=== PATIENT | female | born 1985 | race Caucasian/White ===

== ENCOUNTER → 2018-08-31 11:00 | Outpatient (CLI) | payer SELFPAY | PROVIDERS: Family Provider Family Medicine; PCP Family Medicine | DX: Z23 Encounter for immunization (principal) | CPT/HCPCS: 90471; 90686 ==

== ENCOUNTER → 2019-05-28 17:48 | Outpatient (CLI) | payer SELFPAY ==
[2019-05-28 17:58] LABS: Bacteria Urine None Seen
[2019-05-28 18:04] LABS: Appearance Urine UA CLEAR; Bilirubin Urine UA NEGATIVE (NEGATIVE); Color Urine UA YELLOW; Glucose Urine UA NEGATIVE (Negative); Ketones Urine UA NEGATIVE (NEGATIVE); Leukocyte Esterase Urine UA TRACE (NEGATIVE); Nitrite Urine UA NEGATIVE (Negative); Occult Blood Urine UA TRACE-LYSED (Negative); Protein Urine UA NEGATIVE (Negative); Specific Gravity Urine UA 1.025 (1.000-1.035); Urobilinogen Urine UA 0.2 E.U./dL (0.2)
[2019-05-28 18:51] LABS: Culture Indicated Urine Specimen Cultured; RBC Urine 0-1/HPF (0-5/HPF); Squamous Epithelial Cell Urine 1-5 /HPF (0-5/HPF); WBC Urine 1-5/HPF (0-5/HPF)
== END ==
PROVIDERS: Family Provider Family Medicine; PCP Family Medicine; Visit Provider Family Medicine
DX: R30.0 Dysuria (principal)
CPT/HCPCS: 81001; 87086

== ENCOUNTER → 2019-06-18 17:16 | Outpatient (CLI) | payer SELFPAY | PROVIDERS: Family Provider Family Medicine; PCP Family Medicine; Visit Provider Physician Assistant | DX: N89.8 Other specified noninflammatory disorders of vagina (principal) | CPT/HCPCS: 87210 ==

== ENCOUNTER 2020-12-16 20:44 | Emergency (ER) | payer SELFPAY ==
[2020-12-16] VITALS (14 sets, daily range): BP systolic 122–140; BP diastolic 71–92; PULSE 61–76; RESP 16–18; TEMP 36.8; O2SAT 96–99; BMI 33.5
[2020-12-16 21:19] LABS: Bacteria Urine None Seen
[2020-12-16 21:27] LABS: Add Manual Diff / Slide Review NO; Basophils Absolute Auto 0 /uL (0-100); Basophils Percent Auto 0.7 % (0-2); Eosinophils Absolute Auto 100 /uL (0-450); Eosinophils Percent Auto 2.1 % (2-4); Hematocrit 36.6 % (36-46); Hemoglobin 11.7 g/dL (12.0-16.0); Lymphocytes Absolute Auto 2000 /uL (1100-4500); Lymphocytes Percent Auto 28.9 % (25-40); Mean Corpuscular Hemoglobin 28.5 PG (26-34); Mean Corpuscular Volume 88.8 fL (80-100); Monocytes Absolute Auto 600 /uL (0-900); Monocytes Percent Auto 8.7 % (3-14); Neutrophils Absolute Auto 4200 /uL (1500-7000); Neutrophils Percent Auto 59.6 % (50-75); Platelet Count 304 X10^3/uL (150-400); Red Blood Cell Count 4.12 X10^6/uL (4.0-5.2); Red Cell Distribution Width 13.7 % (11.6-14.8)
[2020-12-16 21:28] LABS: Amorphous Sediment Urine 1+; RBC Urine 30-100/HPF (0-5/HPF); Squamous Epithelial Cell Urine 0-1 /HPF (0-5/HPF); WBC Urine 0-1/HPF (0-5/HPF)
[2020-12-16 21:30] LABS: Culture Indicated Urine Cult Not Indicated
[2020-12-16 21:44] LABS: Alanine Aminotransferase 31 IU/L (<35); Albumin 3.6 g/dL (3.5-5.0); Albumin Globulin Ratio 1.2 (1.0-2.8); Alkaline Phosphatase 138 U/L (38-126); Aspartate Aminotransferase 33 IU/L (14-36); BUN Creatinine Ratio 17.6 (6-22); Bilirubin Total 0.2 mg/dL (0.2-1.3); Blood Urea Nitrogen 12 mg/dL (7-17); Calcium 10.2 mg/dL (8.4-10.2); Carbon Dioxide 26 mmol/L (22-32); Chloride 108 mmol/L (98-107); Estimated Glomerular Filt Rate > 60.0 mL/min (>60); Glucose 94 mg/dL (70-100); HEMOLYSIS 17 (0-50); Sodium 135 mmol/L (137-145); Total Protein 6.6 g/dL (6.3-8.2)
--- NOTE | 2020-12-17 00:06 | ED.GENADULT ---
HPI - General Adult General Chief complaint: Hypertension Stated complaint: hypertension Time Seen by Provider: 12/16/20 20:58 Source: patient Mode of arrival: Ambulatory History of Present Illness HPI narrative: 34-year-old now 6 days without difficulty had a home with her staff nurse midwife and in follow-up was noted to have blood pressure still slightly elevated in the 140/80 range. She is not having any significant headache, swelling or increased edema. She did have similar problems with her 1st 2 pregnancies however after delivery blood pressures came down fairly quickly without any additional medical intervention. She was sent in by her staff nurse midwife for further evaluation today. She is doing well without fevers, breast-feeding is going well, lochia is slowly nicely, perineal pain is resolving. She describes no cough, chest pain, palpitations. Related Data Previous Rx's Medication Instructions Recorded labetalol 100 mg PO BID #60 tab 12/17/20 Allergies Allergy/AdvReac Type Severity Reaction Status Date / Time No Known Drug Allergies Allergy Verified 06/18/19 16:42 Review of Systems Review of Systems ROS Unobtainable: All systems reviewed & are unremarkable except as noted in HPI and below Patient History Medical History (Updated 12/17/20 @ 00:11 by Liv Kwok MD) Hypertension in , condition Family History Brother Age: 38 Chronic heartburn Drug addiction in remission Father Age: 63 History of degenerative disc disease Other chronic pain Depression Mental health problem High cholesterol Grandmother Smoker Alcoholic Cerebrovascular accident (CVA), unspecified mechanism Mother Age: 62 Rheumatoid arthritis, involving unspecified site, unspecified rheumatoid factor presence Fibromyalgia Insomnia, unspecified type Depression Social anxiety disorder Recovering alcoholic in remission Drug addiction in remission Grandfather Smoker Alcoholic Grandmother Age: 87 Type 2 diabetes mellitus Memory loss Sister Age: 36 Rheumatoid arthritis, involving unspecified site, unspecified rheumatoid factor presence Anxiety Mental health problem Social History Smoking Status: Never smoker Smoking Status: Never smoker Substance Use Type: does not use Exam Narrative Exam Narrative: General: Healthy appearing, in no acute distress. Able to give a complete and coherent history. Well-nourished well-developed HEENT: Moist mucous membranes, normal sclera with reactive pupils, Respiratory: Lungs are clear to auscultation, no wheezing no rales no rhonchi. Full and symmetrical air movement Chest: Breasts are full, no evidence of mastitis Cardiac: Regular rate and rhythm no murmurs no bruits Abdomen: Soft, nontender, fundus is approximately 4 cm below the umbilicus good bowel tones, no flank pain Skin: Warm and dry, no rashes Neurologic: Grossly neurologically intact with no obvious asymmetries or abnormalities, no hyper-reflexia Extremities: No trauma, well perfused Psych: Cooperative, appropriate insight and affect Initial Vital Signs Initial Vital Signs: Vital Signs Temperature 98.3 F 12/16/20 20:55 Pulse Rate 76 12/16/20 20:55 Respiratory Rate 16 12/16/20 20:55 Blood Pressure 140/82 12/16/20 20:55 Pulse Oximetry 99 12/16/20 20:55 Course Orders Ordered: ED Orders 12/16/20 21:02 Urine Microscopic Stat 12/16/20 21:20 Complete Blood Count AUTO DIFF Stat Comprehensive Metabolic Panel Stat Vital Signs Vital signs: Vital Signs - 8 hr 12/16/20 20:55 12/16/20 21:00 12/16/20 21:23 Temperature 98.3 F Pulse Rate 76 73 69 Respiratory Rate 16 18 Blood Pressure 140/82 132/71 Pulse Oximetry 99 98 97 12/16/20 21:30 12/16/20 21:45 12/16/20 22:00 Temperature Pulse Rate 68 69 69 Respiratory Rate 17 Blood Pressure 131/79 123/79 128/86 Pulse Oximetry 98 98 98 12/16/20 22:15 12/16/20 22:30 12/16/20 22:45 Temperature Pulse Rate 70 64 65 Respiratory Rate Blood Pressure 129/85 129/85 124/82 Pulse Oximetry 97 97 97 12/16/20 23:00 12/16/20 23:15 12/16/20 23:30 Temperature Pulse Rate 64 64 61 Respiratory Rate Blood Pressure 122/83 138/81 Pulse Oximetry 96 96 97 12/16/20 23:31 12/16/20 23:45 Temperature Pulse Rate 61 75 Respiratory Rate Blood Pressure 128/82 135/92 H Pulse Oximetry 97 97 Medical Decision Making Medical Records Medical records reviewed: Yes I reviewed the patient's medical records. Lab Data Lab results reviewed: Yes I reviewed the patient's lab results. Result diagrams: 12/16/20 21:20 12/16/20 21:20 Labs: Lab Results 12/16/20 12/16/20 12/16/20 Range/Units 21:02 21:20 21:20 WBC 7.0 (4.5-11.0) X10^3/uL RBC 4.12 (4.0-5.2) X10^6/uL Hgb 11.7 L (12.0-16.0) g/dL Hct 36.6 (36-46) % MCV 88.8 (80-100) fL MCH 28.5 (26-34) PG MCHC 32.0 (30-36) % RDW 13.7 (11.6-14.8) % Plt Count 304 (150-400) X10^3/uL Neut % (Auto) 59.6 (50-75) % Lymph % (Auto) 28.9 (25-40) % Bea[place]gard % (Auto) 8.7 (3-14) % Eos % (Auto) 2.1 (2-4) % Baso % (Auto) 0.7 (0-2) % Neut # (Auto) 4200 (0945-4424) /uL Lymph # (Auto) 2000 (5383-9236) /uL Bea[place]gard # (Auto) 600 (0-900) /uL Eos # (Auto) 100 (0-450) /uL Baso # (Auto) 0 (0-100) /uL Sodium 135 L (137-145) mmol/L Potassium 4.0 (3.4-5.1) mmol/L Chloride 108 H (98-107) mmol/L Carbon Dioxide 26 (22-32) mmol/L BUN 12 (7-17) mg/dL Creatinine 0.68 (0.52-1.04) mg/dL Estimated GFR > 60.0 (>60) mL/min BUN/Creatinine Ratio 17.6 (6-22) Glucose 94 (70-100) mg/dL Calcium 10.2 (8.4-10.2) mg/dL Total Bilirubin 0.2 (0.2-1.3) mg/dL AST 33 (14-36) IU/L ALT 31 (<35) IU/L Alkaline Phosphatase 138 H (38-126) U/L Total Protein 6.6 (6.3-8.2) g/dL Albumin 3.6 (3.5-5.0) g/dL Globulin 3.0 (1.7-4.1) g/dL Albumin/Globulin Ratio 1.2 (1.0-2.8) Urine RBC 30-100/hpf H (0-5/HPF) Urine WBC 0-1/hpf (0-5/HPF) Ur Squamous Epith Cells 0-1 /hpf (0-5/HPF) Amorphous Sediment 1+ Urine Bacteria None seen (None) Ur Culture Indicated? Cult not indicated Urine Dip Bedside Urine Glucose Negative Bedside Urine Bilirubin - Negative Bedside Urine Ketone - Negative Urine Specific [place] 1.020 Bedside Urine Occult Blood +++ Bedside Urine pH 6.5 Bedside Urine Protein - Negative Bedside Urine Urobilinogen - Negative Bedside Urine Nitrite - Negative Bedside Urine Leukocytes - Negative Esterase Point of care testing: Urine Dip Bedside Urine Glucose Negative Bedside Urine Bilirubin - Negative Bedside Urine Ketone - Negative Urine Specific [place] 1.020 Bedside Urine Occult Blood +++ Bedside Urine pH 6.5 Bedside Urine Protein - Negative Bedside Urine Urobilinogen - Negative Bedside Urine Nitrite - Negative Bedside Urine Leukocytes - Negative Esterase MDM Narrative Medical decision making narrative: 34-year-old woman for 6 days with continued slightly elevated blood pressures. No evidence of preeclampsia or HELLP syndrome. Discussed starting labetalol 100 mg b.i.d. as needed if blood pressures are over 140/80. This is reviewed with her staff nurse midwife who referred her to emergency department. Will ask her to follow-up with her primary care physician regarding need for continuing blood pressure medication management. She is safe for home discharge Discharge Plan Departure Patient Disposition: Home Clinical Impression: Hypertension in , condition Instructions: DI for High Blood Pressure Activity Restrictions/Additional Instructions: Thank you for coming in today Your blood pressures are trending a little bit high but the clearly come down to normal ranges as well. With a blood work done in the emergency room today there is no evidence of preeclampsia. I am going to suggest that we begin labetalol 100 mg twice a day. This medication is safe with breast-feeding. Prescription was electronically transmitted to [facility] in [place] for you today. In the morning please check your blood pressure and if it is above 140/80 take the labetalol. Repeat this in the evening. If your blood pressure is not over 140/80 you do not need to take the medication. Please follow-up with Dr. Gregory for the blood pressure questions. I did review my recommendations with your staff nurse midwife however they do not typically prescribed blood pressure medications Prescriptions: New labetalol 100 mg tablet 100 mg PO BID Qty: 60 RF: 0 Referrals: Rosey Gregory DO [Primary Care Provider] -
[2020-12-17 00:30] VITALS: BP 129/88; PULSE 73; RESP 18; O2SAT 97
== END 2020-12-17 00:31 | disposition home or self-care (01) ==
PROVIDERS: Emergency Provider Emergency Medicine; Family Provider Family Medicine; PCP Family Medicine
DX: O16.5 Unspecified maternal hypertension, complicating the puerperium (principal)
CPT/HCPCS: 36415; 80053; 81003; 81015; 85025; 99281; 99283

== ENCOUNTER → 2021-02-26 11:14 | Outpatient (CLI) | payer OTHER, SELFPAY ==
[2021-02-26] MEDS: COVID-19 VACC #1, MRNA(MOD) 100 MCG/0.5 ML VIAL IM (11:22)
== END ==
PROVIDERS: Family Provider Family Medicine; PCP Family Medicine; Visit Provider Internal Medicine
DX: Z23 Encounter for immunization (principal)
CPT/HCPCS: 0011A; 91301

== ENCOUNTER → 2021-04-01 11:08 | Outpatient (CLI) | payer OTHER, SELFPAY ==
[2021-04-01] MEDS: COVID-19 VACC #2, MRNA(MOD) 100 MCG/0.5 ML VIAL IM (11:15)
== END ==
PROVIDERS: Family Provider Family Medicine; PCP Family Medicine; Visit Provider Internal Medicine
DX: Z23 Encounter for immunization (principal)
CPT/HCPCS: 0012A; 91301

== ENCOUNTER → 2022-01-01 10:57 | Outpatient (CLI) | payer SELFPAY ==
--- NOTE | 2022-01-01 10:59 | DI.RAD.S_ITS ---
PROCEDURE: FL BARIUM SWALLOW INDICATIONS: dysphagia COMPARISON: None. FINDINGS: Function: There is normal esophageal peristalsis. No elicited gastroesophageal reflux. There is normal transit of a calibrated barium tablet through the esophagus into the stomach. Morphology: Air-contrast images demonstrate normal mucosal morphology. Single contrast views show no esophageal strictures, extrinsic mass effects, or diverticula. Limited images of the stomach demonstrate normal appearance. IMPRESSION: Normal esophagram. Dictated by: Steffanie Gonzalez M.D. on 01/01/2022 at 12:18 Approved by: Steffanie Gonzalez M.D. on 01/01/2022 at 12:18
== END ==
PROVIDERS: Family Provider Family Medicine; PCP Family Medicine; Referring Provider Family Medicine; Visit Provider Family Medicine
DX: R13.10 Dysphagia, unspecified (principal)
CPT/HCPCS: 74220

== ENCOUNTER → 2022-11-16 15:18 | Outpatient (CLI) | payer SELFPAY | PROVIDERS: Family Provider Family Medicine; PCP Family Medicine; Visit Provider Surgery | DX: L05.91 Pilonidal cyst without abscess (principal) | CPT/HCPCS: 87070; 87075; 87205 ==

== ENCOUNTER 2023-02-23 11:15 | Outpatient (RCR) | payer SELFPAY ==
--- NOTE | 2023-01-12 13:59 | PT.OIE ---
Current Diagnoses Separation of muscle (nontraumatic), other site (01/11/23) Other specified disorders of muscle (01/11/23) Past Medical History (Last Reviewed 11/23/22 @ 16:27 by Lesia Fish RN) Adult acne Hypertension in , condition Visit Care Team Role Provider Type Rosey Gregory DO Attending Provider Physician Family Provider Primary Care Provider Referring Provider Specialty: Family Practice Address: [address] [place] [address], [facility] Email: [email or web address] Physical Therapy Initial Evaluation PT-OP-A Visit Information Start: 01/11/23 12:06 Freq: Status: Active Protocol: Document 01/11/23 14:30 [facility] (Rec: 01/11/23 17:47 [facility] [id number]) Out-Patient Physical Therapy Visit Information Visit Information Visit Type Initial Evaluation Visit Start Time 14:30 Visit Stop Time 15:15 Total Visit Minutes 45 Visit Number 1 Evaluation Information Evaluation Date 01/11/23 PT-OP-B Current Condition Start: 01/11/23 12:06 Freq: Status: Active Protocol: Document 01/11/23 14:30 [facility] (Rec: 01/11/23 15:13 [facility] [id number]) Current Condition History of Current Condition Current Complaints urinary incontinencne, pelvic floor weakness, diastasis History of Current Condition pt's son just turned two and she was here at 7 months old after he was born pt notes her leaking has increased and has happened with intercourse, if she has to go she needs to get to the bathroom within 5 min. first child is when she had a 3rd degree tear. Her children's ages are 6 4 and almost 2 Pt would like to begin woring on pelvic floor and lower abdominal strength Treatment Goals Patient/Caregiver Goals Goal include increasing strength to eliminate urinary leakage and urgency as well as improve core strength PT-OP-F Manual Assessment Start: 01/11/23 12:06 Freq: Status: Active Protocol: Document 01/11/23 14:30 [facility] (Rec: 01/12/23 13:59 [facility] [id number]) Manual Assessments Soft Tissue Assessment Soft Tissue Mobility Assessment diastasis recti with 3 finger width seperation both proximal and distal to umbilicus PT-OP-I Pelvic Floor Start: 01/11/23 12:06 Freq: Status: Active Protocol: Document 01/11/23 14:30 PENDING SALE TO [facility] (Rec: 01/11/23 17:53 PENDING SALE TO [facility] [id number]) Pelvic Floor Assessment Urine Pelvic Floor Surgery No Other Urinary Symptoms pt reports urinary leakage with coughing or sneezing jumping on trampoline and laughing too hard Leakage Size Medium Leakage Cause Cough,Exercise,Urge Other Leakage Causes pt also reports she leaks with intercourse Leaks Per Day 1 Voiding Frequency 15-20 xms Nocturia 0 Urine Pad Type Panty Liner Pelvic Clock Pelvic Clock 12-3 Guarding Pelvic Clock 3-6 Atrophy Pelvic Clock 6-9 Atrophy Pelvic Clock 9-12 Atrophy Pelvic Clock Other there is guarding on the left side of the anterior pelvic floor near the pubic bone Perineal Descent Resting Present Bearing Present Contraction Ability Voluntary Contraction Weak Voluntary Relaxation Weak Manual Muscle Testing Left 1 Manual Muscle Testing Right 2 Manual Muscle Testing Anterior 2 Manual Muscle Testing Posterior 2 Muscle Endurance (Seconds) 5 Comments Pelvic Floor Comments pt has difficulty relaxing the anterior wall of the pubococcygeus on the left side of the levator ani PT-OP-J Posture/Palpation/Skin Start: 01/11/23 12:06 Freq: Status: Active Protocol: Document 01/11/23 14:30 [facility] (Rec: 01/12/23 13:58 [facility]END[facility] [id number]) Palpation Assessment Location abdominal wall Palpation Details 3 finger width diastasis both proximal and distal to the umbilicus PT-OP-Q Treatments Start: 01/11/23 12:06 Freq: Status: Active Protocol: Document 01/11/23 14:30 [facility] (Rec: 01/11/23 17:47 [facility] [id number]) Therapeutic Exercises Supine Exercises supine pelvic floor long holds Reps/Minutes 10 reps x 10 second holds supine TA activation Reps/Minutes pt to work up to 10 second hold time x 10 reps PT-OP-T Assessment and Plan Start: 01/11/23 12:06 Freq: Status: Active Protocol: Document 01/11/23 14:30 [facility] (Rec: 01/11/23 18:05 [facility] [id number]) Physical Therapy Assessment Rehab Potential Rehabilitation Potential Excellent Evaluation Complexity Number of Personal Factors/Comorbidities 0 Number of Body Systems Impaired 1-2 Clinical Presentation at Evaluation Stable Impairments Impairments Activity Tolerance,Soft Tissue Mobility,Strength,Tone Other Impairments urinary leakage and urgency Goals 3 Impairment 3 finger width diastasis recti that limits pts ability to lift and engage her core with certain movements Custodial Goal (LTG) Terri has been educated on a lower abdominal strengthening program that includes dynamic stabilization for improved support of her core LTG Duration 12 weeks 2 Impairment Decreased endurance of the levator ani Short Term Goal (STG) Terri is able to sustain a pelvic floor contraction x 10 seconds in supine STG Duration x 5 weeks Custodial Goal (LTG) Terri is able to sustain a pelvic floor muscle contraction x 10 seconds in a standing positions LTG Duration 12 weeks pelvic floor weakness Impairment pelvic floor weakness with urinary stress incontinence and urgency Hydraulic Technician Goal (LTG) Terri is able to improve her pelvic floor muscle strength to 3/5 MMT or better LTG Duration 12 weeks Assessment Summary Assessment Terri is a 37 year old female with symptoms of urinary stress incontinence and urgency as well as core weakness with diastasis recti. She was initially seen but found it was not the right time to do PT with her baby being so young. She would like to start again as she continues to experience symptoms of urinary leakage with urgency. She has a history of 3 vaginal deliveries with a 3rd degree perineal tear with her first delivery. She has had a diastasis since her first baby . With examination today there is a 3 finger width diastasis both proximal and distal to the umbilicus. She presents with pelvic floor weakness of all mcmanus of the levator ani. She is able to contract all mcmanus of the mcmanus of the levator ani with her anterior wall is 1/5 and lateral mcmanus and posterior wall 2/5. There is some guarding of the levator ani on the left side on the anterior wall near the pubic bone. Terri has some difficulty relaxing her pelvic floor following a pelvic floor contraction. Terri will benefit from pelvic floor NMES to help improve both the endurance and strength of the pelvic floor as well as the ability to relax the pelvic floor muscles. Physical Therapy Plan Frequency and Duration Frequency of Treatment 1x/Week Duration of treatment (weeks) 12 Plan of Care Start Date 01/11/23 Plan of Care End Date 04/05/23 Therapeutic Interventions Therapeutic Interventions Home Exercise Program, Neuromuscular Re-education, Patient/Caregiver Education, Therapeutic Exercises Modalities Biofeedback,Electric Stimulation Next Visit Focus/Plan Next Note Type Treatment Note Next Visit Plan Begin EMG biofeedback next visit and progress TA stabilization exercises, begin urge deference technique with Terri
--- NOTE | 2023-01-12 13:59 | PT.OPPOC ---
Physical, Occupational & Speech Therapy At [facility] Current Diagnoses Separation of muscle (nontraumatic), other site (01/11/23) Other specified disorders of muscle (01/11/23) Visit Care Team Role Provider Type Rosey Gregory DO Attending Provider Physician Family Provider Primary Care Provider Referring Provider Specialty: Family Practice Address: [address] [place] [address], [facility] Email: [email or web address] Plan Of Care PT-OP-T Assessment and Plan Start: 01/11/23 12:06 Freq: Status: Active Protocol: Document 01/11/23 14:30 [facility] (Rec: 01/11/23 18:05 [facility] [id number]) Physical Therapy Assessment Rehab Potential Rehabilitation Potential Excellent Evaluation Complexity Number of Personal Factors/Comorbidities 0 Number of Body Systems Impaired 1-2 Clinical Presentation at Evaluation Stable Impairments Impairments Activity Tolerance,Soft Tissue Mobility,Strength,Tone Other Impairments urinary leakage and urgency Goals 3 Impairment 3 finger width diastasis recti that limits pts ability to lift and engage her core with certain movements Teenage Babysitter Goal (LTG) Terri has been educated on a lower abdominal strengthening program that includes dynamic stabilization for improved support of her core LTG Duration 12 weeks 2 Impairment Decreased endurance of the levator ani Short Term Goal (STG) Terri is able to sustain a pelvic floor contraction x 10 seconds in supine STG Duration x 5 weeks Detention Goal (LTG) Terri is able to sustain a pelvic floor muscle contraction x 10 seconds in a standing positions LTG Duration 12 weeks pelvic floor weakness Impairment pelvic floor weakness with urinary stress incontinence and urgency Teenage Babysitter Goal (LTG) Terri is able to improve her pelvic floor muscle strength to 3/5 MMT or better LTG Duration 12 weeks Assessment Summary Assessment Terri is a 37 year old female with symptoms of urinary stress incontinence and urgency as well as core weakness with diastasis recti. She was initially seen but found it was not the right time to do PT with her baby being so young. She would like to start again as she continues to experience symptoms of urinary leakage with urgency. She has a history of 3 vaginal deliveries with a 3rd degree perineal tear with her first delivery. She has had a diastasis since her first baby . With examination today there is a 3 finger width diastasis both proximal and distal to the umbilicus. She presents with pelvic floor weakness of all mcmanus of the levator ani. She is able to contract all mcmanus of the mcmanus of the levator ani with her anterior wall is 1/5 and lateral mcmanus and posterior wall 2/5. There is some guarding of the levator ani on the left side on the anterior wall near the pubic bone. Terri has some difficulty relaxing her pelvic floor following a pelvic floor contraction. Terri will benefit from pelvic floor NMES to help improve both the endurance and strength of the pelvic floor as well as the ability to relax the pelvic floor muscles. Physical Therapy Plan Frequency and Duration Frequency of Treatment 1x/Week Duration of treatment (weeks) 12 Plan of Care Start Date 01/11/23 Plan of Care End Date 04/05/23 Therapeutic Interventions Therapeutic Interventions Home Exercise Program, Neuromuscular Re-education, Patient/Caregiver Education, Therapeutic Exercises Modalities Biofeedback,Electric Stimulation Next Visit Focus/Plan Next Note Type Treatment Note Next Visit Plan Begin EMG biofeedback next visit and progress TA stabilization exercises, begin urge deference technique with Terri Plan of Care Dates Plan of Care Start Date 01/11/23 Plan of Care End Date 04/05/23 Electronically Signed by: Brit Starkey, PT 01/12/23 1062 If you are in agreement with this Plan of Care, please return a signed and dated copy. I have reviewed this Plan of Care and certify that the skilled therapy services above are required to meet the patient?s needs. Physician Signature Date Printed Name and Credentials Clinical Instructor Signature Printed Name and Credentials
--- NOTE | 2023-01-20 09:30 | PT.OTN ---
Current Diagnoses Separation of muscle (nontraumatic), other site (01/19/23) Other specified disorders of muscle (01/19/23) Physical Therapy Treatment Note PT-OP-A Visit Information Start: 01/11/23 12:06 Freq: Status: Active Protocol: Document 01/19/23 11:19 [facility] (Rec: 01/19/23 12:06 [facility] [id number]) Out-Patient Physical Therapy Visit Information Visit Information Visit Type Treatment Note Visit Start Time 11:20 Visit Stop Time 12:00 Total Visit Minutes 40 Visit Number 2 PT-OP-B Current Condition Start: 01/11/23 12:06 Freq: Status: Active Protocol: Document 01/11/23 14:30 [facility] (Rec: 01/11/23 15:13 [facility] [id number]) Current Condition History of Current Condition Current Complaints urinary incontinencne, pelvic floor weakness, diastasis History of Current Condition pt's son just turned [age] and she was here at 7 months old after he was born pt notes her leaking has increased and has happened with intercourse, if she has to go she needs to get to the bathroom within 5 min. first child is when she had a 3rd degree tear. Her children's ages are 6 4 and almost 2 Pt would like to begin woring on pelvic floor and lower abdominal strength Treatment Goals Patient/Caregiver Goals Goal include increasing strength to eliminate urinary leakage and urgency as well as improve core strength PT-OP-C Subjective Start: 01/11/23 12:06 Freq: Status: Active Protocol: Document 01/19/23 11:19 [facility] (Rec: 01/20/23 09:30 [facility] [id number]) OP-PT Subjective Patient Comments Patient Comments Terri reports she has been working on her exercises at home, she is not sure of what all she can do at home for her abs as she doesn't want to damage anything PT-OP-F Manual Assessment Start: 01/11/23 12:06 Freq: Status: Active Protocol: Document 01/11/23 14:30 [facility] (Rec: 01/12/23 13:59 [facility] [id number]) Manual Assessments Soft Tissue Assessment Soft Tissue Mobility Assessment diastasis recti with 3 finger width seperation both proximal and distal to umbilicus PT-OP-I Pelvic Floor Start: 01/11/23 12:06 Freq: Status: Active Protocol: Document 01/11/23 14:30 [facility] (Rec: 01/11/23 17:53 [facility] [id number]) Pelvic Floor Assessment Urine Pelvic Floor Surgery No Other Urinary Symptoms pt reports urinary leakage with coughing or sneezing jumping on trampoline and laughing too hard Leakage Size Medium Leakage Cause Cough,Exercise,Urge Other Leakage Causes pt also reports she leaks with intercourse Leaks Per Day 1 Voiding Frequency 15-20 xms Nocturia 0 Urine Pad Type Panty Liner Pelvic Clock Pelvic Clock 12-3 Guarding Pelvic Clock 3-6 Atrophy Pelvic Clock 6-9 Atrophy Pelvic Clock 9-12 Atrophy Pelvic Clock Other there is guarding on the left side of the anterior pelvic floor near the pubic bone Perineal Descent Resting Present Bearing Present Contraction Ability Voluntary Contraction Weak Voluntary Relaxation Weak Manual Muscle Testing Left 1 Manual Muscle Testing Right 2 Manual Muscle Testing Anterior 2 Manual Muscle Testing Posterior 2 Muscle Endurance (Seconds) 5 Comments Pelvic Floor Comments pt has difficulty relaxing the anterior wall of the pubococcygeus on the left side of the levator ani PT-OP-J Posture/Palpation/Skin Start: 01/11/23 12:06 Freq: Status: Active Protocol: Document 01/11/23 14:30 [facility] (Rec: 01/12/23 13:58 [facility] [id number]) Palpation Assessment Location abdominal wall Palpation Details 3 finger width diastasis both proximal and distal to the umbilicus PT-OP-Q Treatments Start: 01/11/23 12:06 Freq: Status: Active Protocol: Document 01/19/23 11:19 [facility] (Rec: 01/19/23 12:06 [facility] [id number]) Therapeutic Exercises Supine Exercises pelvic floor long holds Reps/Minutes 10 reps x 10 second holds Comments with EMG biofeedback single knee to chest stretch Reps/Minutes hold 1-2 min Comments right hip tightness iliopsoas stretch in supine Reps/Minutes hold 1-2 min Comments marta test position supine TA with SLR Reps/Minutes x 10 supine march Reps/Minutes x 10 Comments left hip popping supine pelvic floor long holds Reps/Minutes 10 reps x 10 seconds Comments 8.3 13.7 uv supine TA activation Reps/Minutes pt to work up to 10 second hold time x 10 reps Other Exercises ird dog Other Exercise Name BIRD DOG Reps/Minutes x 10 Comments cues for neutral spine quadruped TA Reps/Minutes x 5 Manual Therapy Treatment Manual Techniques MET for R posterior innominant rotation Comments left leg was longer in supine, this corrected with MET and then pt had less popping with TA stabilization exercises PT-OP-T Assessment and Plan Start: 01/11/23 12:06 Freq: Status: Active Protocol: Document 01/19/23 11:19 [facility] (Rec: 01/20/23 09:30 [facility] [id number]) Physical Therapy Assessment Assessment Summary Assessment I progressed Terri's exercises for abdominal stabilization and she tolerated this well. Her left side of her SI joint unlocks with marching ex. She was shifted in her pelvis today. Continue working on SI stability and progress dynamic stabilization as Terri can tolerate. Physical Therapy Plan Frequency and Duration Frequency of Treatment 1x/Week Duration of treatment (weeks) 12 Plan of Care Start Date 01/11/23 Plan of Care End Date 04/05/23 Therapeutic Interventions Therapeutic Interventions Home Exercise Program, Neuromuscular Re-education, Patient/Caregiver Education, Therapeutic Exercises Modalities Biofeedback,Electric Stimulation Next Visit Focus/Plan Next Note Type Treatment Note Next Visit Plan Begin EMG biofeedback next visit and progress TA stabilization exercises, review urge deference technique with Terri
--- NOTE | 2023-01-26 13:43 | PT.OTN ---
Current Diagnoses Separation of muscle (nontraumatic), other site (01/26/23) Other specified disorders of muscle (01/26/23) Physical Therapy Treatment Note PT-OP-A Visit Information Start: 01/11/23 12:06 Freq: Status: Active Protocol: Document 01/26/23 11:21 [facility] (Rec: 01/26/23 12:06 [facility] [id number]) Out-Patient Physical Therapy Visit Information Visit Information Visit Type Treatment Note Visit Start Time 11:20 PT-OP-B Current Condition Start: 01/11/23 12:06 Freq: Status: Active Protocol: Document 01/11/23 14:30 [facility] (Rec: 01/11/23 15:13 [facility] [id number]) Current Condition History of Current Condition Current Complaints urinary incontinencne, pelvic floor weakness, diastasis History of Current Condition pt's son just turned [age] and she was here at 7 months old after he was born pt notes her leaking has increased and has happened with intercourse, if she has to go she needs to get to the bathroom within 5 min. first child is when she had a 3rd degree tear. Her children's ages are 6 4 and almost 2 Pt would like to begin woring on pelvic floor and lower abdominal strength Treatment Goals Patient/Caregiver Goals Goal include increasing strength to eliminate urinary leakage and urgency as well as improve core strength PT-OP-C Subjective Start: 01/11/23 12:06 Freq: Status: Active Protocol: Document 01/26/23 11:21 [facility] (Rec: 01/26/23 12:06 [facility] [id number]) OP-PT Subjective Patient Comments Patient Comments reports the exercises went well last week, no straining to the abdominal wall. Some times with sneezing she will notice leaking. PT-OP-F Manual Assessment Start: 01/11/23 12:06 Freq: Status: Active Protocol: Document 01/11/23 14:30 [facility] (Rec: 01/12/23 13:59 [facility] [id number]) Manual Assessments Soft Tissue Assessment Soft Tissue Mobility Assessment diastasis recti with 3 finger width seperation both proximal and distal to umbilicus PT-OP-I Pelvic Floor Start: 01/11/23 12:06 Freq: Status: Active Protocol: Document 01/11/23 14:30 [facility] (Rec: 01/11/23 17:53 [facility] [id number]) Pelvic Floor Assessment Urine Pelvic Floor Surgery No Other Urinary Symptoms pt reports urinary leakage with coughing or sneezing jumping on trampoline and laughing too hard Leakage Size Medium Leakage Cause Cough,Exercise,Urge Other Leakage Causes pt also reports she leaks with intercourse Leaks Per Day 1 Voiding Frequency 15-20 xms Nocturia 0 Urine Pad Type Panty Liner Pelvic Clock Pelvic Clock 12-3 Guarding Pelvic Clock 3-6 Atrophy Pelvic Clock 6-9 Atrophy Pelvic Clock 9-12 Atrophy Pelvic Clock Other there is guarding on the left side of the anterior pelvic floor near the pubic bone Perineal Descent Resting Present Bearing Present Contraction Ability Voluntary Contraction Weak Voluntary Relaxation Weak Manual Muscle Testing Left 1 Manual Muscle Testing Right 2 Manual Muscle Testing Anterior 2 Manual Muscle Testing Posterior 2 Muscle Endurance (Seconds) 5 Comments Pelvic Floor Comments pt has difficulty relaxing the anterior wall of the pubococcygeus on the left side of the levator ani PT-OP-J Posture/Palpation/Skin Start: 01/11/23 12:06 Freq: Status: Active Protocol: Document 01/11/23 14:30 [facility] (Rec: 01/12/23 13:58 [facility] [id number]) Palpation Assessment Location abdominal wall Palpation Details 3 finger width diastasis both proximal and distal to the umbilicus PT-OP-Q Treatments Start: 01/11/23 12:06 Freq: Status: Active Protocol: Document 01/26/23 11:21 [facility] (Rec: 01/26/23 12:06 [facility] [id number]) Therapeutic Exercises Supine Exercises bridges Reps/Minutes x 10 reps with ball squeeze single knee to chest stretch Reps/Minutes hold 1-2 min Comments right hip tightness supine TA with SLR Reps/Minutes x 10 supine march Reps/Minutes x 10 Comments minor left hip popping Other Exercises planks forward and side Comments tried variations using both forarms and straight arms ird dog Other Exercise Name BIRD DOG Reps/Minutes x 10 Comments cues for neutral spine PT-OP-T Assessment and Plan Start: 01/11/23 12:06 Freq: Status: Active Protocol: Document 01/26/23 13:40 [facility] (Rec: 01/26/23 13:42 [facility] [id number]) Physical Therapy Assessment Assessment Summary Assessment Terri is tolerating progression of dynamic stabilization well. She did not have her sensor for EMG biofeedback with her today so we will resume biofeedback next visit Physical Therapy Plan Frequency and Duration Frequency of Treatment 1x/Week Duration of treatment (weeks) 12 Plan of Care Start Date 01/11/23 Plan of Care End Date 04/05/23 Therapeutic Interventions Therapeutic Interventions Home Exercise Program, Neuromuscular Re-education, Patient/Caregiver Education, Therapeutic Exercises Modalities Biofeedback,Electric Stimulation Next Visit Focus/Plan Next Note Type Treatment Note Next Visit Plan continue progressing lumbar stabilization exercises and pelvic floor stabilization
--- NOTE | 2023-02-23 14:08 | PT.OTN ---
Current Diagnoses Separation of muscle (nontraumatic), other site (02/23/23) Other specified disorders of muscle (02/23/23) Physical Therapy Treatment Note PT-OP-A Visit Information Start: 01/11/23 12:06 Freq: Status: Active Protocol: Document 02/23/23 11:23 [facility] (Rec: 02/23/23 11:39 [facility] [id number]) Out-Patient Physical Therapy Visit Information Visit Information Visit Type Treatment Note Visit Start Time 11:20 Visit Stop Time 12:05 Total Visit Minutes 45 Visit Number 4 PT-OP-B Current Condition Start: 01/11/23 12:06 Freq: Status: Active Protocol: Document 01/11/23 14:30 [facility] (Rec: 01/11/23 15:13 [facility] [id number]) Current Condition History of Current Condition Current Complaints urinary incontinencne, pelvic floor weakness, diastasis History of Current Condition pt's son just turned [age] and she was here at 7 months old after he was born pt notes her leaking has increased and has happened with intercourse, if she has to go she needs to get to the bathroom within 5 min. first child is when she had a 3rd degree tear. Her children's ages are 6 4 and almost 2 Pt would like to begin woring on pelvic floor and lower abdominal strength Treatment Goals Patient/Caregiver Goals Goal include increasing strength to eliminate urinary leakage and urgency as well as improve core strength PT-OP-C Subjective Start: 01/11/23 12:06 Freq: Status: Active Protocol: Document 02/23/23 11:23 [facility] (Rec: 02/23/23 11:39 [facility] [id number]) OP-PT Subjective Patient Comments Patient Comments things are feeling a little better, she is not leaking as much but still feels that she leaks a little. She wears a panty liner and if she has a full bladder and she sneezes she has a panty liner one. pt brings in her exercise list of hit exercises she would like to go over PT-OP-F Manual Assessment Start: 01/11/23 12:06 Freq: Status: Active Protocol: Document 01/11/23 14:30 [facility] (Rec: 01/12/23 13:59 [facility] [id number]) Manual Assessments Soft Tissue Assessment Soft Tissue Mobility Assessment diastasis recti with 3 finger width seperation both proximal and distal to umbilicus PT-OP-I Pelvic Floor Start: 01/11/23 12:06 Freq: Status: Active Protocol: Document 01/11/23 14:30 [facility] (Rec: 01/11/23 17:53 [facility] [id number]) Pelvic Floor Assessment Urine Pelvic Floor Surgery No Other Urinary Symptoms pt reports urinary leakage with coughing or sneezing jumping on trampoline and laughing too hard Leakage Size Medium Leakage Cause Cough,Exercise,Urge Other Leakage Causes pt also reports she leaks with intercourse Leaks Per Day 1 Voiding Frequency 15-20 xms Nocturia 0 Urine Pad Type Panty Liner Pelvic Clock Pelvic Clock 12-3 Guarding Pelvic Clock 3-6 Atrophy Pelvic Clock 6-9 Atrophy Pelvic Clock 9-12 Atrophy Pelvic Clock Other there is guarding on the left side of the anterior pelvic floor near the pubic bone Perineal Descent Resting Present Bearing Present Contraction Ability Voluntary Contraction Weak Voluntary Relaxation Weak Manual Muscle Testing Left 1 Manual Muscle Testing Right 2 Manual Muscle Testing Anterior 2 Manual Muscle Testing Posterior 2 Muscle Endurance (Seconds) 5 Comments Pelvic Floor Comments pt has difficulty relaxing the anterior wall of the pubococcygeus on the left side of the levator ani PT-OP-J Posture/Palpation/Skin Start: 01/11/23 12:06 Freq: Status: Active Protocol: Document 01/11/23 14:30 [facility] (Rec: 01/12/23 13:58 [facility] [id number]) Palpation Assessment Location abdominal wall Palpation Details 3 finger width diastasis both proximal and distal to the umbilicus PT-OP-Q Treatments Start: 01/11/23 12:06 Freq: Status: Active Protocol: Document 02/23/23 11:23 [facility] (Rec: 02/23/23 11:39 [facility] [id number]) Therapeutic Exercises Supine Exercises supine crunches with pelvic floor and TA activation Reps/Minutes x 10 reps Comments worked with arms extended to knees quick pelvic floor contractions Reps/Minutes x 10 reps hold 2 sec relax 2 sec pelvic floor long holds Reps/Minutes 10 reps x 10 second holds 7.3 and 13.8 uv Comments with EMG biofeedback Other Exercises lunges Comments with pelvic floor activation jump squats Reps/Minutes x 10 Comments with pelvic floor activation single leg squat Reps/Minutes x 10 Comments with cues to avoid the knee moving across midline worked on transitions from squat to plank for burpies Reps/Minutes x 5 planks forward and side Comments tried variations using both forarms and straight arms PT-OP-T Assessment and Plan Start: 01/11/23 12:06 Freq: Status: Active Protocol: Document 02/23/23 14:05 [facility] (Rec: 02/23/23 14:07 [facility] [id number]) Physical Therapy Assessment Assessment Summary Assessment Terri is doing better with pelvic floor long holds, she still needs full 10 seconds of endurance so she is instructed to continue with these. I also recommended the kegal weights for priprioception for her to squeeze against. She was able to progress to more dynamic exercises for her work out program at home. Cues to brace with her core and use her own timing so that she can set her core before each exercise Physical Therapy Plan Frequency and Duration Frequency of Treatment 1x/Week Duration of treatment (weeks) 12 Plan of Care Start Date 01/11/23 Plan of Care End Date 04/05/23 Therapeutic Interventions Therapeutic Interventions Home Exercise Program, Neuromuscular Re-education, Patient/Caregiver Education, Therapeutic Exercises Modalities Biofeedback,Electric Stimulation Next Visit Focus/Plan Next Note Type Treatment Note Next Visit Plan continue progressing lumbar stabilization exercises and pelvic floor stabilization
--- NOTE | 2023-06-28 09:15 | PT.OPDS ---
Current Diagnoses Separation of muscle (nontraumatic), other site (02/23/23) Other specified disorders of muscle (02/23/23) Visit Care Team Role Provider Type Rosey Gregory DO Attending Provider Physician Family Provider Primary Care Provider Referring Provider Specialty: Family Practice Address: [address] [place] [id number] Email: [email or web address] Visit Number Visit Number 4 Discharge Summary PT-OP-B Current Condition Start: 01/11/23 12:06 Freq: Status: Active Protocol: Document 01/11/23 14:30 [facility] (Rec: 01/11/23 15:13 [facility] [id number]) Current Condition History of Current Condition Current Complaints urinary incontinencne, pelvic floor weakness, diastasis History of Current Condition pt's son just turned [age] and she was here at 7 months old after he was born pt notes her leaking has increased and has happened with intercourse, if she has to go she needs to get to the bathroom within 5 min. first child is when she had a 3rd degree tear. Her children's ages are 6 4 and almost 2 Pt would like to begin woring on pelvic floor and lower abdominal strength Treatment Goals Patient/Caregiver Goals Goal include increasing strength to eliminate urinary leakage and urgency as well as improve core strength PT-OP-C Subjective Start: 01/11/23 12:06 Freq: Status: Active Protocol: Document 02/23/23 11:23 [facility] (Rec: 02/23/23 11:39 [facility] [id number]) OP-PT Subjective Patient Comments Patient Comments things are feeling a little better, she is not leaking as much but still feels that she leaks a little. She wears a panty liner and if she has a full bladder and she sneezes she has a panty liner one. pt brings in her exercise list of hit exercises she would like to go over PT-OP-F Manual Assessment Start: 01/11/23 12:06 Freq: Status: Active Protocol: Document 01/11/23 14:30 [facility] (Rec: 01/12/23 13:59 [facility] [id number]) Manual Assessments Soft Tissue Assessment Soft Tissue Mobility Assessment diastasis recti with 3 finger width seperation both proximal and distal to umbilicus PT-OP-I Pelvic Floor Start: 01/11/23 12:06 Freq: Status: Active Protocol: Document 01/11/23 14:30 [facility] (Rec: 01/11/23 17:53 [facility] [id number]) Pelvic Floor Assessment Urine Pelvic Floor Surgery No Other Urinary Symptoms pt reports urinary leakage with coughing or sneezing jumping on trampoline and laughing too hard Leakage Size Medium Leakage Cause Cough,Exercise,Urge Other Leakage Causes pt also reports she leaks with intercourse Leaks Per Day 1 Voiding Frequency 15-20 xms Nocturia 0 Urine Pad Type Panty Liner Pelvic Clock Pelvic Clock 12-3 Guarding Pelvic Clock 3-6 Atrophy Pelvic Clock 6-9 Atrophy Pelvic Clock 9-12 Atrophy Pelvic Clock Other there is guarding on the left side of the anterior pelvic floor near the pubic bone Perineal Descent Resting Present Bearing Present Contraction Ability Voluntary Contraction Weak Voluntary Relaxation Weak Manual Muscle Testing Left 1 Manual Muscle Testing Right 2 Manual Muscle Testing Anterior 2 Manual Muscle Testing Posterior 2 Muscle Endurance (Seconds) 5 Comments Pelvic Floor Comments pt has difficulty relaxing the anterior wall of the pubococcygeus on the left side of the levator ani PT-OP-J Posture/Palpation/Skin Start: 01/11/23 12:06 Freq: Status: Active Protocol: Document 01/11/23 14:30 [facility] (Rec: 01/12/23 13:58 [facility] [id number]) Palpation Assessment Location abdominal wall Palpation Details 3 finger width diastasis both proximal and distal to the umbilicus PT-OP-T Assessment and Plan Start: 01/11/23 12:06 Freq: Status: Active Protocol: Document 06/28/23 09:14 [facility] (Rec: 06/28/23 09:15 [facility] [id number]) Physical Therapy Assessment Assessment Summary Assessment Terri has not shown up for her remaining PT visits. She will be discharged from PT at this time Physical Therapy Plan Discharge Physical Therapy Discharge Reasons No Longer Attending PT
== END 2023-07-06 11:01 | disposition home or self-care (01) ==
LOC: PHYS 11:15
PROVIDERS: Family Provider Family Medicine; PCP Family Medicine; Referring Provider Family Medicine; Visit Provider Family Medicine
DX: M62.08 Separation of muscle (nontraumatic), other site (principal); M62.89 Other specified disorders of muscle
CPT/HCPCS: 97110; 97161

== ENCOUNTER → 2023-11-10 11:40 | Outpatient (CLI) | payer SELFPAY | PROVIDERS: Family Provider Family Medicine; PCP Student in an Organized Health Care Education/Training Program; Visit Provider Student in an Organized Health Care Education/Training Program | DX: N76.0 Acute vaginitis (principal); B96.89 Other specified bacterial agents as the cause of diseases classified elsewhere | CPT/HCPCS: 87210 ==

== ENCOUNTER → 2023-12-27 14:16 | Outpatient (CLI) | payer SELFPAY | PROVIDERS: Family Provider Family Medicine; PCP Student in an Organized Health Care Education/Training Program; Visit Provider Nurse Practitioner Family | DX: J02.9 Acute pharyngitis, unspecified (principal) | CPT/HCPCS: 87070 ==

== ENCOUNTER → 2024-06-27 08:01 | Outpatient (CLI) | payer SELFPAY | PROVIDERS: Family Provider Family Medicine; PCP Student in an Organized Health Care Education/Training Program; Referring Provider Physician Assistant Surgical; Visit Provider Physician Assistant Surgical | DX: N89.8 Other specified noninflammatory disorders of vagina (principal); R30.0 Dysuria | CPT/HCPCS: 87077; 87086; 87147; 87210 ==

== ENCOUNTER → 2024-09-28 13:53 | Outpatient (CLI) | payer OTHER, SELFPAY | PROVIDERS: Family Provider Family Medicine; PCP Student in an Organized Health Care Education/Training Program; Visit Provider Nurse Practitioner Family | DX: N89.8 Other specified noninflammatory disorders of vagina (principal) | CPT/HCPCS: 87070; 87205 ==